=== PATIENT | female | born 1970 | race Caucasian/White ===

== ENCOUNTER 2016-10-13 12:30 | Emergency (ER) | payer OTHER ==
[~2016-10-13] VITALS: Ht 162.6 cm; Wt 81.6 kg
--- NOTE | 2016-10-13 12:44 | ED GI/GU/ABDOMINAL COMPLAINT ---
History of Present Illness General Chief Complaint: Abdominal Pain/Flank Pain Stated Complaint: ABD PAIN Source: patient Exam Limitations: no limitations Vital Signs & Intake/Output Vital Signs & Intake/Output Vital Signs Date Time Temp Pulse Resp B/P B/P Pulse O2 O2 Flow FiO2 Mean Ox Delivery Rate 10/13 1637 99.0 79 18 113/59 99 Room Air 10/13 1257 98.3 67 18 135/91 99 Room Air Allergies Coded Allergies: No Known Allergies (10/13/16) Reconcile Medications Fexofenadine HCl (Amina Allergy) 180 MG TABLET 1 TAB PO DAILY ALLERGIES ( Reported) Omeprazole 40 MG CAPSULE.DR 1 CAP PO DAILY GASTRITIS Ondansetron (Zofran Odt) 4 MG TAB.RAPDIS 1 TAB SL TID PRN NAUSEA Oxycodone HCl 5 MG TABLET 1 TAB PO BIDPRN PRN PAIN Triage Nurses Notes Reviewed? yes ? n Is pt currently ? No Onset: Gradual Duration: day(s): (3) Timing: no prior history Quality/Severity: cramping, sharpness Severity Numbers: 8 Location: epigastric, right upper quadrant Radiation: no radiation Activities at Onset: eating Prior Abdominal Problems: none Past Sexual History: Unobtainable at this time HPI: Patient is a 45 female presenting to the emergency department with chief complaint of epigastric and right upper quadrant pain has been going on and off for the past 3 days. She has had associated loose stool, reports that it was greasy in the toilet bowl. Positive nausea but no vomiting. No fevers or chills. Denies history of similar symptoms in the past. Denies any urinary frequency urgency or dysuria. Denies chest pain palpitations or shortness of breath. Has been taking Pepto-Bismol with no relief. No sick contacts or recent travel. No recent antibiotic use. Denies any urinary frequency urgency or dysuria no hematuria. Denies any vaginal discharge or bleeding. (SARAI RAMIREZ) Past History Travel History Traveled to [place] past 21 day No Medical History Any Pertinent Medical History? see below for history Surgical History Surgical History: non-contributory Psychosocial History What is your primary language Colombian Family History Hx Contributory? No (SARAI RAMIREZ) Review of Systems Review of Systems Constitutional: Reports: no symptoms. Comments Review of systems: See HPI, All other systems negative. Constitutional, no chills fever or weight loss HEENT: No visual changes no sore throat no congestion Cardiovascular: No chest pain ,palpitation , orthopnea or ankle swelling Skin, no jaundice no rashes Respiratory: No dyspnea cough sputum or hemoptysis GI: no vomiting : No dysuria No hematuria Muscle skeletal: no back pain, no neck pain, Neurologic: No numbness no confusion Psych: No stress anxiety Immunology: No splenectomy or history of AIDS (SARAI RAMIREZ) Physical Exam Physical Exam General Appearance: awake, mild distress Gastrointestinal: soft, tenderness Comments: Well-developed well-nourished person in mild distress HEENT: Pupils equally round and reactive to light and accommodation. Nose is atraumatic. . Pharynx normal. No swelling or edema. Neck: Normal inspection Back: Nontender, no CVA tenderness. Cardiovascular: Regular rate and rhythms no murmurs rubs or gallops, normal JVP Respiratory: Chest nontender. No respiratory distress.breath sounds clear to auscultation bilaterally Abdomen: Soft, tender to palpation in the epigastric and right upper quadrant. Positive [place] sign. Mild guarding. No rebound tenderness. Nondistended, no appreciable organomegaly. Normal bowel sounds. No ascites PELVIC: PT REFUSED Extremity: No edema Neuro: Alert oriented x3 Skin: No appreciable rash on exposed skin, skin is warm and dry. Psych: Mood and affect is normal, memory and judgment is normal. Core Measures ACS in differential dx? No Severe Sepsis Present: No Septic Shock Present: No (SARAI RAMIREZ) Progress Differential Diagnosis: pancreatitis, PID/cervicitis, perforated viscous, UTI/ pyelo, KIDNEY STONE, CHOLECYSTITIS, PANCREATITIS, GASTRITIS, PEPTIC ULCER DISEASE, acs, VIRAL SYNDROME Plan of Care: Orders Procedure Date/time Status Add-on Test (ER Only) 10/13 1629 Active Add-on Test (ER Only) 10/13 1531 Active CULTURE,URINE 10/13 1440 Active CHLAMYDIA-GC DNA PROBE 10/13 1420 Active Add-on Test (ER Only) 10/13 1412 Active EKG 10/13 1321 Active TROPONIN LEVEL 10/13 1304 Complete HUMAN BETA HCG SCREEN 10/13 1304 Complete URINALYSIS 10/13 1250 Complete LIPASE 10/13 1250 Complete LACTIC ACID 10/13 1250 Complete C-REACTIVE PROTEIN 10/13 1250 Complete COMPREHENSIVE METABOLIC PANEL 10/13 1250 Complete CBC WITHOUT DIFFERENTIAL 10/13 1250 Complete Laboratory Tests 10/13/16 1550: Lactic Acid Cancelled 10/13/16 1420: Urine Color YEL, Urine Clarity HAZY H, Urine pH 7.0, Ur Specific [place] 1.020, Urine Protein TRACE H, Urine Ketones NEG, Urine Nitrite NEG, Urine Bilirubin NEG, Urine Urobilinogen 0.2, Ur Leukocyte Esterase NEG, Ur Microscopic SEDIMENT EXAMINED, Urine RBC 3-5, Urine WBC RARE, Ur Epithelial Cells MOD H, Urine Bacteria RARE H, Urine Mucus MOD H, Micro UA Comment MORE INFO: H, Urine Hemoglobin MOD H, Urine Glucose NEG 10/13/16 1304: Anion Gap 12, Estimated GFR > 60, BUN/Creatinine Ratio 22.9, Glucose 94, Lactic Acid 0.8, Calcium 9.1, Total Bilirubin 0.5, AST 18, ALT 42, Alkaline Phosphatase 53, Troponin I < 0.01, C-Reactive Prot, Quant < 0.5, Total Protein 7.2, Albumin 4.4, Globulin 2.8, Albumin/Globulin Ratio 1.6, Lipase 64, Total Beta HCG NEGATIVE, CBC w Diff NO MAN DIFF REQ, RBC 4.50, MCV 94.1, MCH 32.1 H, RDW 12.7, MPV 9.1, Gran % 79.9 H, Lymphocytes % 10.7 L, Monocytes % 4.8, Eosinophils % 4.2, Basophils % 0.4, Absolute Granulocytes 8.4 H, Absolute Lymphocytes 1.1 L, Absolute Monocytes 0.5, Absolute Eosinophils 0.4, Absolute Basophils 0, PUBS MCHC 34.1 Microbiology 10/13 144 URINE ROUT: Urine Culture - RECD 10/14 1419 URINE ROUT: GC DNA Probe - RECD 10/14 1419 URINE ROUT: Chlamydia DNA Probe (RONNIE) - RECD Diagnostic Imaging: Viewed by Me: Ultrasound. Discussed w/RAD: Ultrasound. Radiology Impression: PATIENT: ROSA TORREZ PRESENT AGE: 45 PATIENT ACCOUNT NO: [id number] : 69 LOCATION: [facility] ORDERING PHYSICIAN: SARAI BECKER SERVICE DATE: 10/13/16 EXAM TYPE: CAT - CT ABD & PELVIS W IV CONTRAST EXAMINATION: CT ABDOMEN AND PELVIS WITH CONTRAST CLINICAL INFORMATION: Right upper quadrant pain. COMPARISON: Abdominal ultrasound performed earlier the same day. TECHNIQUE: Multidetector volumetric imaging was performed of the abdomen and pelvis before and after the IV administration of 95 mL of Optiray 320 intravenous contrast. Sagittal and coronal reformatted images were obtained on the technologist's workstation. DLP: 461 mGy-cm FINDINGS: Lung bases are clear. Imaging through the liver, spleen, pancreas, gallbladder, and biliary tree are unremarkable without evidence of significant appearing inflammatory changes. The adrenal glands and kidneys are normal appearing. There are a few small mesenteric lymph nodes below the size criteria for pathologically enlarged nodes with mild mesenteric stranding which is nonspecific and may be related to mesenteric panniculitis. There is mild mural thickening suggested in the body of the stomach however the stomach is underdistended limiting evaluation. Colon and terminal ileum are unremarkable. Appendix is not visualized, however no inflammatory changes are identified in the right lower quadrant. Patient's intrauterine device is not properly positioned and appears either to be completely within the cervix or partially in the cervix and lower uterine segment with surrounding soft tissue prominence and enlargement suggesting surrounding edema or evolving hematoma. An alternate form of contraception is necessary. Anterior abdominal wall is intact without evidence of underlying hernia. There is no intraperitoneal free fluid. There is no evidence of lymphadenopathy. Aorta is nonaneurysmal. Urinary bladder is partially filled and unremarkable. Osseous structures demonstrate no focal destructive or sclerotic lesions. IMPRESSION: 1. Intrauterine device is improperly positioned with soft tissue prominence in the cervix and lower uterine segment concerning for evolving fluid collection or edema. An alternative form of contraception is necessary. This finding was discussed with Sarai Vera the referring provider at 1530 hours on the day of the exam. 2. Stomach is underdistended limiting evaluation, there is questionable mural thickening, however no surrounding soft tissue stranding to suggest inflammation. 3. Multiple small mesenteric lymph nodes and soft tissue stranding in the mesentery suggesting mesenteric panniculitis. 4. Otherwise largely unremarkable examination. DICTATED BY: MACKENZIE RICHEY MD DATE/TIME DICTATED:1523 DRAGSAW OPERATOR:SARAH DATE/TIME TRANSCRIBED:10/13/161523 CONFIDENTIAL, DO NOT COPY WITHOUT APPROPRIATE AUTHORIZATION. Initial ED EKG: NSR (65 BPM) Comments: 10/13/2016 4:45:55 PM patient informed of all lab work results and imaging study results. She was informed that the IUD is malpositioned and I would recommend removal with a pelvic exam. Patient is having right upper quadrant pain with a malpositioned IUD. She is not complaining of any vaginal discharge, denies any chance of STD, unlikely PID but this couldBE PID as well. She wants to follow up with her GIVING OFFICER. Patient is feeling improved after medications although still having pain in the right upper quadrant. She will be discharged to follow up with GIVING OFFICER, started on pain medication, nausea medication and antacid to help with gastritis. She return for any fevers worsening symptoms or concerns. We sent off a urine culture including GC chlamydia. Patient refused pelvic examination. Unable to remove IUD here in the emergency department. Patient was informed of potential risks associated with malpositioned IUD. Discussed with Dr. Saavedra and she agrees with plan. (SARAI RAMIREZ) Departure Departure Time of Disposition: 1610 Disposition: HOME OR SELF CARE Condition: Stable Clinical Impression Primary Impression: Abdominal pain Qualifiers: Abdominal location: right upper quadrant Qualified Code: R10.11 - Right upper quadrant pain Secondary Impressions: Malpositioned IUD Qualifiers: Encounter type: initial encounter Qualified Code: T83.32XA - Displacement of intrauterine contraceptive device, initial encounter Referrals: PATIENT HAS NO PRIMARY CARE DR (PCP/Family) Additional Instructions: Follow-up care primary care physician call to make an appointment. Increase fluids. Return for worsening symptoms or concerns. Departure Forms: Customer Survey D/C INS-APPENDICITIS EXCLUSION General Discharge Information Prescriptions: Current Visit Scripts Oxycodone HCl 1 TAB PO BIDPRN PRN PAIN #10 TAB Omeprazole 1 CAP PO DAILY #14 CAP Ondansetron (Zofran Odt) 1 TAB SL TID PRN NAUSEA #10 TAB (SARAI RAMIREZ) PA/MONOMER RECOVERY SUPERVISOR Co-Sign Statement Statement: ED Attending supervision documentation- [] I saw and evaluated the patient. I have also reviewed all the pertinent lab results and diagnostic results. I agree with the findings and the plan of care as documented in the PA's/MONOMER RECOVERY SUPERVISOR's documentation. [X] I have reviewed the ED Record and agree with the PA's/MONOMER RECOVERY SUPERVISOR's documentation. [] Additions or exceptions (if any) to the PAs/MONOMER RECOVERY SUPERVISOR's note and plan are summarized below: [] (STEVEN DENIS,MAKAYLA)
[2016-10-13 13:27] LABS: ABSOLUTE BASOPHIL COUNT 0 /CUMM (0.0-0.2); ABSOLUTE EOSINOPHIL COUNT 0.4 /CUMM (0.0-0.7); ABSOLUTE GRANULOCYTE CT 8.4 /CUMM (1.4-6.5); ABSOLUTE LYMPH COUNT 1.1 /CUMM (1.2-3.4); ABSOLUTE MONOCYTE COUNT 0.5 /CUMM (0.10-0.60); BASOPHIL % 0.4 % (0.0-2.0); EOSINOPHIL % 4.2 % (0-5); GRANULOCYTE % 79.9 % (42.2-75.2); HEMATOCRIT 42.3 % (37-47); MEAN CORPUSCULAR HGB 32.1 PG (27.0-31.0); MEAN CORPUSCULAR HGB CONC 34.1 G/DL (33.0-37.0); MEAN CORPUSCULAR VOLUME 94.1 FL (81.0-99.0); MEAN PLATELET VOLUME 9.1 FL (7.4-10.4); PLATELET COUNT 258 /CUMM (130-400); RBC DISTRIBUTION WIDTH 12.7 % (11.5-14.5); WHITE BLOOD CELL COUNT 10.6 /CUMM (4.8-10.8)
--- NOTE | 2016-10-13 14:56 | ULTRASOUND REPORT ---
EXAMINATION: ABDOMINAL ULTRASOUND CLINICAL INFORMATION: Right upper quadrant pain. COMPARISON: None. TECHNIQUE: Routine grayscale and color Doppler imaging is provided for interpretation. FINDINGS: Only a small portion of the pancreas is well-visualized and appears unremarkable. Remaining pancreas is obscured due to overlying bowel gas despite provocative measures. The liver, gallbladder, and biliary tree appear unremarkable. The extrahepatic common duct is non dilated measuring 0.4 maximal dimension. Right kidney is normal in size and echotexture measuring 11.2 cm in maximal longitudinal dimension. There is no hydronephrosis or nephrolithiasis identified. There is no intraperitoneal free fluid identified. IMPRESSION: 1. Pancreas is not well visualized. MR or CT imaging could be performed to further evaluate if indicated clinically. 2. Otherwise unremarkable examination.
--- NOTE | 2016-10-13 15:59 | CT SCAN REPORT ---
EXAMINATION: CT ABDOMEN AND PELVIS WITH CONTRAST CLINICAL INFORMATION: Right upper quadrant pain. COMPARISON: Abdominal ultrasound performed earlier the same day. TECHNIQUE: Multidetector volumetric imaging was performed of the abdomen and pelvis before and after the IV administration of 95 mL of Optiray 320 intravenous contrast. Sagittal and coronal reformatted images were obtained on the technologist's workstation. DLP: 461 mGy-cm FINDINGS: Lung bases are clear. Imaging through the liver, spleen, pancreas, gallbladder, and biliary tree are unremarkable without evidence of significant appearing inflammatory changes. The adrenal glands and kidneys are normal appearing. There are a few small mesenteric lymph nodes below the size criteria for pathologically enlarged nodes with mild mesenteric stranding which is nonspecific and may be related to mesenteric panniculitis. There is mild mural thickening suggested in the body of the stomach however the stomach is underdistended limiting evaluation. Colon and terminal ileum are unremarkable. Appendix is not visualized, however no inflammatory changes are identified in the right lower quadrant. Patient's intrauterine device is not properly positioned and appears either to be completely within the cervix or partially in the cervix and lower uterine segment with surrounding soft tissue prominence and enlargement suggesting surrounding edema or evolving hematoma. An alternate form of contraception is necessary. Anterior abdominal wall is intact without evidence of underlying hernia. There is no intraperitoneal free fluid. There is no evidence of lymphadenopathy. Aorta is nonaneurysmal. Urinary bladder is partially filled and unremarkable. Osseous structures demonstrate no focal destructive or sclerotic lesions. IMPRESSION: 1. Intrauterine device is improperly positioned with soft tissue prominence in the cervix and lower uterine segment concerning for evolving fluid collection or edema. An alternative form of contraception is necessary. This finding was discussed with Anisha Vera the referring provider at 1530 hours on the day of the exam. 2. Stomach is underdistended limiting evaluation, there is questionable mural thickening, however no surrounding soft tissue stranding to suggest inflammation. 3. Multiple small mesenteric lymph nodes and soft tissue stranding in the mesentery suggesting mesenteric panniculitis. 4. Otherwise largely unremarkable examination.
[2016-10-13] MEDS ORDERED: ZOFRAN ODT4 M1 SL (16:34)
[2016-10-13] MEDS ORDERED: OMEPRAZOLE40 M1 PO (16:34)
[2016-10-13] MEDS ORDERED: OXYCODONE HCL5 M1 PO (16:34)
[2016-10-13 16:37] VITALS: BP 113/59
[2016-10-13] MEDS ORDERED: ALLEGRA ALLERG180 M1 PO (16:44)
== END 2016-10-13 17:08 ==
LOC: ERH 12:30
PROVIDERS: Physician Assistant
DX: T83.32XA Displacement of intrauterine contraceptive device, initial encounter (principal)
CPT/HCPCS: 74177; 81001; 87086; 87491; 87591; 93005; 93010; 96374; 96375; 96376; J1885; J2405; J2550